=== PATIENT | female | born 1995 | race African-American/Black ===

== ENCOUNTER 2022-02-27 19:09 | Emergency (ER) | payer OTHER | END 2022-02-28 02:22 | disposition home or self-care (01) | LOC: FER 19:09 | DX: T40.711A Poisoning by cannabis, accidental (unintentional), initial encounter (principal); R06.02 Shortness of breath; R00.2 Palpitations; R11.2 Nausea with vomiting, unspecified; J45.909 Unspecified asthma, uncomplicated; F17.200 Nicotine dependence, unspecified, uncomplicated | CPT/HCPCS: 93005; J7030 ==